=== PATIENT | female | born 1950 | race Caucasian/White ===

== ENCOUNTER 2017-02-11 09:12 | Emergency (ER) | payer OTHER ==
[2017-02-11 09:18] VITALS: BP 136/74; PULSE 78; TEMP 98; BMI 27.2
--- NOTE | 2017-02-11 09:32 | PDOC ---
History of Present Illness - General Chief Complaint: Rash Stated Complaint: RASH Time Seen by Provider: 02/11/17 09:26 History Source: Patient Exam Limitations: No Limitations - History of Present Illness Initial Comments: 02/11/17 17:34 Sent here with concerns of 2 lesions to her right forearm. States noted a itching bump about 5 days ago which is progressively become more erythematous and circumferentially pruritic to approximately 2 cm. Has no drainage, no pointing, no pain, but rather pruritic. Has used alcohol in the area but no other medications for relief. Is uncertain as to cause, and has no pets or recent exposure knowledge Timing/Duration: reports: just prior to arrival Severity: Yes: mild Location: reports: extremities Respiratory Risk Factors: reports: no cause identified, insect bite Associated Symptoms: reports: denies symptoms Past History - Travel Traveled outside of the country in the last 30 days: No Close contact w/someone who was outside of country & ill: No - Past Medical History Allergies/Adverse Reactions: Allergies Allergy/AdvReac Type Severity Reaction Status Date / Time No Known Allergies Allergy Verified 02/11/17 09:18 HTN: Yes Hypercholesterolemia: Yes - Psycho/Social/Smoking Cessation Hx Suicidal Ideation: No Smoking History: Never smoked Information on smoking cessation initiated: No Review of Systems - Review of Systems Able to Perform ROS?: Yes Is the patient limited Turkmen proficient: Yes Constitutional: Yes: See HPI. No: Symptoms Reported, Fever, Malaise HEENTM: Yes: See HPI. No: Symptoms Reported Respiratory: Yes: See HPI. No: Symptoms reported, Cough, Shortness of Breath Cardiac (ROS): No: Symptoms Reported Integumentary: Yes: Symptoms Reported, See HPI, Lesions (2 lesions to right forearm one discrete,) Neurological: No: Symptoms reported All Other Systems: Reviewed and Negative *Physical Exam - Vital Signs Last Vital Signs Temp Pulse Resp BP Pulse Ox 98 F 78 18 136/74 98 02/11/17 09:16 02/11/17 09:16 02/11/17 09:16 02/11/17 09:16 02/11/17 09:16 - Physical Exam General Appearance: Yes: Nourished, Appropriately Dressed. No: Apparent Distress HEENT: positive: CIERA, Normal ENT Inspection, Normal Voice, TMs Normal, Pharynx Normal (no swelling or erythema). negative: Rhinorrhea, Sinus Tenderness Neck: positive: Supple. negative: Tender Respiratory/Chest: positive: Lungs Clear Cardiovascular: positive: Regular Rhythm Extremity: positive: Normal Capillary Refill Integumentary: positive: Other (lesion to volar upper right forearm- descrete lesion that has center blanching ) Neurologic: positive: computer training specialist II-XII NML intact, Fully Oriented, Alert, Normal Mood/ Affect, Normal Response, Motor Strength 5/5 Progress Note - Progress Note Progress Note: 2 separate lesions, probable insect bites, no further treatment required Medical Decision Making - Medical Decision Making 02/11/17 17:36 2 lesions, probable insect bites without evidence of cellulitis. We'll treat conservatively 02/11/17 17:37 *DC/Admit/Observation/Transfer Diagnosis at time of Disposition: Insect bite Qualifiers: Encounter type: initial encounter Qualified Code(s): W57.XXXA - Bitten or stung by nonvenomous insect and other nonvenomous arthropods, initial encounter - Discharge Dispostion Disposition: HOME Condition at time of disposition: Stable Admit: No - Referrals Referrals: Patrick Chandler MD [Primary Care Provider] - - Patient Instructions Printed Discharge Instructions: DI for Insect Bites and Stings Additional Instructions: Rest, keep cool and dry- avoid strenuous activity or hot /humid environments Less hot showers, no abrasive soaps May use heavy creams like Eucerin or Cetaphil to keep skin moist May apply Aveeno, calamine lotion, [id number] hydrocortisone creams as needed for symptoms May use Benadryl at night for antihistamine, Zyrtec/ Marcella or Claritin for daytime antihistamine use to help with itching May use [id number] hydrocortisone cream on all areas except face Try to identify cause for rash and avoid exposures Followup with PMD in one week if no resolution Make appointment with analytical lab technician for evaluation when possible
== END 2017-02-11 10:44 | disposition home or self-care (01) ==
LOC: JERFT 09:12
DX: S50.861A Insect bite (nonvenomous) of right forearm, initial encounter (principal); W57.XXXA Bitten or stung by nonvenomous insect and other nonvenomous arthropods, initial encounter; Y93.89 Activity, other specified; Y92.038 Other place in apartment as the place of occurrence of the external cause; I10 Essential (primary) hypertension; E78.00 Pure hypercholesterolemia, unspecified
CPT/HCPCS: 99281-25